=== PATIENT | male | born 1995 ===

== ENCOUNTER 2020-04-27 11:40 | Emergency (ER) | payer OTHER, SELFPAY ==
[2020-04-27] VITALS (12 sets, daily range): BP systolic 123–150; BP diastolic 75–92; PULSE 87–127; RESP 14–27; TEMP 37.4; O2SAT 94–97; BMI 33.5
--- NOTE | 2020-04-27 12:46 | ED_ITS ---
HPI - GI Bleed General Chief complaint: GI Bleed Stated complaint: chrons flair up/ intestinal pain Time Seen by Provider: 04/27/20 12:24 Source: patient Mode of arrival: Wheelchair Limitations: no limitations History of Present Illness HPI Narrative: Patient is a 24-year-old male with history of Crohn's disease who is controlled on an infusion of Entyvio once every other month, but has not had an injection since October. He started having increasing abdominal pain about a week ago on 04/22/20 was seen evaluated at [facility] he had blood work and a CT scan was started on prednisone unfortunately he did not take the prednisone because he throws up every time he eats or drinks anything. He started having bloody stool yesterday. He said it was bright red multiple episodes then started becoming maroon. He is having some abdominal cramping. He is little short of breath with exertion noted to be slightly tachycardic in the ED. he denies any hematemesis. He is also complaining of rigors and sweats. MD complaint: gross hematochezia Related Data Previous Rx's Medication Instructions Recorded ondansetron 4 mg PO Q8H PRN #10 tab 04/27/20 Allergies Allergy/AdvReac Type Severity Reaction Status Date / Time No Known Drug Allergies Allergy Verified 04/27/20 12:18 Review of Systems Review of Systems Narrative: GENERAL: Denies chills, fatigue, malaise, fever, sweats, travel HEENT: Denies sinus pain, ear pain, sore throat, difficulty swallowing, neck pain RESPIRATORY: Short of breath with exertion Denies dyspnea, cough, wheezing, hemoptysis, sputum. CARDIOVASCULAR: Denies chest pain, palpitations, orthopnea, edema GASTROINTESTINAL see HPI : Denies dysuria, frequency, incontinence, hematuria, urinary retention, flank pain. MUSCULOSKELETAL: Denies weakness, joint pain, or bony pain SKIN: No rash, no erythema, no pruritus NEUROLOGIC: Denies weakness, dizziness, headache, numbness, change in speech, confusion PSYCHIATRIC: No concerning psychosocial issues. 12 point review of systems is negative except for those stated above and HPI Patient History Medical History Crohn's disease Social History Smoking Status: Unknown if ever smoked Smoking Status: Unknown if ever smoked alcohol intake frequency: holidays/special occasions only Substance Use Type: does not use Exam Initial Vital Signs Initial Vital Signs: Vital Signs Temperature 99.3 F 04/27/20 12:13 Pulse Rate 127 H 04/27/20 12:13 Respiratory Rate 15 04/27/20 12:13 Blood Pressure 140/92 H 04/27/20 12:13 Pulse Oximetry 96 04/27/20 12:13 GENERAL: Well-appearing, well-nourished and in no acute distress. HEENT: Head atraumatic,EOMI, pupils reactive, face symmetric, moist mucous membranes CARDIOVASCULAR: Regular rate and rhythm without murmurs, rubs or gallops. RESPIRATORY: Breath sounds equal bilaterally, no wheezes rales or rhonchi. ABDOMEN: Soft, nontender. Normoactive bowel sounds all 4 quadrants. No guarding or rebound. RECTAL: Hemoccult negative, no hemorrhoids EXTREMITIES: Normal range of motion, no clubbing or edema. Neurovascularly intact NEUROLOGICAL: Alert and oriented x4.Normal gait and speech. Cranial nerves II through XII grossly intact. SKIN: Warm, dry, no laceration, no petechiae, no rashes or lesions. Course Orders Ordered: ED Orders 04/27/20 12:21 EKG-12 Lead Stat 04/27/20 12:49 Complete Blood Count AUTO DIFF Stat Comprehensive Metabolic Panel Stat Partial Thromboplastin Time Stat Prothrombin Time INR Stat Type and Screen Stat 04/27/20 13:26 Urine Culture Stat Urine Microscopic Stat Discontinued Medications Sodium Chloride (Normal Saline 0.9%) 1,000 mls @ 1,000 mls/hr IV BOLUS ONE Stop: 04/27/20 16:05 Last Infusion: 04/27/20 16:37 Dose: 0 mls/hr Documented by: Admin: 04/27/20 15:48 Dose: 1,000 mls/hr Documented by: JEREMY Methylprednisolone (Methylprednisolone 125 Mg/2 Ml Vial) 125 mg IV NOW ONE Stop: 04/27/20 13:00 Last Admin: 04/27/20 13:05 Dose: 125 mg Documented by: SUMAYA Morphine Sulfate (Morphine 2 Mg/Ml Inj) 2 mg IV NOW ONE Stop: 04/27/20 14:15 Last Admin: 04/27/20 14:47 Dose: 2 mg Documented by: MEAGHAN Ondansetron HCl (Ondansetron 4 Mg/2 Ml Inj) 4 mg IV NOW ONE Stop: 04/27/20 13:00 Last Admin: 04/27/20 13:05 Dose: 4 mg Documented by: SUMAYA Potassium Chloride (Potassium Chloride 20 Meq Tab) 40 meq PO NOW ONE Stop: 04/27/20 15:08 Last Admin: 04/27/20 15:47 Dose: 40 meq Documented by: JEREMY Vital Signs Vital signs: Vital Signs - 8 hr 04/27/20 12:13 04/27/20 12:16 04/27/20 12:17 Temperature 99.3 F Pulse Rate 127 H 121 H Respiratory Rate 15 Blood Pressure 140/92 H 140/92 H Pulse Oximetry 96 97 96 04/27/20 12:30 04/27/20 13:00 04/27/20 13:30 Temperature Pulse Rate 104 H 104 H 100 H Respiratory Rate 27 H 24 25 H Blood Pressure Pulse Oximetry 95 95 94 04/27/20 14:51 04/27/20 15:00 04/27/20 15:30 Temperature Pulse Rate 97 H 88 88 Respiratory Rate 15 14 20 Blood Pressure 143/87 H 148/85 H 150/87 H Pulse Oximetry 94 94 95 04/27/20 15:52 04/27/20 16:00 04/27/20 16:30 Temperature Pulse Rate 87 90 89 Respiratory Rate 19 21 23 Blood Pressure 144/78 H 135/79 123/75 Pulse Oximetry 96 94 94 MDM - GI Bleed Lab Data Attestation: I reviewed the patient's lab results. Result diagrams: 04/27/20 12:49 04/27/20 12:49 Labs: Lab Results 04/27/20 04/27/20 04/27/20 Range/Units 12:49 12:49 12:49 WBC 17.5 H (4.5-11.0) X10^3/uL RBC 5.15 (4.5-5.9) X10^6/uL Hgb 14.5 (13.5-17.5) g/dL Hct 42.9 (41-53) % MCV 83.2 (80-100) fL MCH 28.1 (26-34) PG MCHC 33.7 (30-36) % RDW 13.2 (11.6-14.8) % Plt Count 288 (150-400) X10^3/uL Neut % (Auto) Not Reportable Lymph % (Auto) Not Reportable [place] % (Auto) Not Reportable Eos % (Auto) Not Reportable Baso % (Auto) Not Reportable Lymph # (Auto) Not Reportable [place] # (Auto) Not Reportable Baso # (Auto) Not Reportable Total Counted 100 Seg Neutrophils % 42.0 (38-70) % Band Neutrophils % 36.0 H (3-7) % Lymphocytes % (Manual) 4.0 L (25-45) % Atypical Lymphs % 1.0 H ( - 0) % Monocytes % (Manual) 17.0 H (2-11) % Neutrophils # (Manual) 23540 H (7471-4898) /uL Toxic Vacuolation Present H Dohle Bodies 1+ H RBC Morphology Normal morphology PT 19.3 H (10.1-12.7) SECONDS INR 1.7 H (0.9-1.3) APTT 29 (26.4-36.2) SECONDS Sodium 132 L (137-145) mmol/L Potassium 3.0 L (3.4-5.1) mmol/L Chloride 98 (98-107) mmol/L Carbon Dioxide 22 (22-32) mmol/L BUN 10 (9-20) mg/dL Creatinine 0.85 (0.66-1.25) mg/dL Estimated GFR > 60.0 (>60) mL/min BUN/Creatinine Ratio 11.8 (6-22) Glucose 127 H (70-100) mg/dL Calcium 8.8 (8.4-10.2) mg/dL Total Bilirubin 0.5 (0.2-1.3) mg/dL AST 36 (17-59) IU/L ALT 34 (<50) IU/L Alkaline Phosphatase 129 H (38-126) U/L Total Protein 7.5 (6.3-8.2) g/dL Albumin 3.9 (3.5-5.0) g/dL Globulin 3.6 (1.7-4.1) g/dL Albumin/Globulin Ratio 1.1 (1.0-2.8) Urine RBC (0-5/HPF) Urine WBC (0-5/HPF) Ur Squamous Epith Cells (0-5/HPF) Amorphous Sediment Urine Bacteria (None) Urine Mucus (Negative) Ur Culture Indicated? Blood Type Antibody Screen 04/27/20 04/27/20 Range/Units 12:49 13:26 WBC (4.5-11.0) X10^3/uL RBC (4.5-5.9) X10^6/uL Hgb (13.5-17.5) g/dL Hct (41-53) % MCV (80-100) fL MCH (26-34) PG MCHC (30-36) % RDW (11.6-14.8) % Plt Count (150-400) X10^3/uL Neut % (Auto) Lymph % (Auto) [place] % (Auto) Eos % (Auto) Baso % (Auto) Lymph # (Auto) [place] # (Auto) Baso # (Auto) Total Counted Seg Neutrophils % (38-70) % Band Neutrophils % (3-7) % Lymphocytes % (Manual) (25-45) % Atypical Lymphs % ( - 0) % Monocytes % (Manual) (2-11) % Neutrophils # (Manual) ([id number]) /uL Toxic Vacuolation Dohle Bodies RBC Morphology PT (10.1-12.7) SECONDS INR (0.9-1.3) APTT (26.4-36.2) SECONDS Sodium (137-145) mmol/L Potassium (3.4-5.1) mmol/L Chloride (98-107) mmol/L Carbon Dioxide (22-32) mmol/L BUN (9-20) mg/dL Creatinine (0.66-1.25) mg/dL Estimated GFR (>60) mL/min BUN/Creatinine Ratio (6-22) Glucose (70-100) mg/dL Calcium (8.4-10.2) mg/dL Total Bilirubin (0.2-1.3) mg/dL AST (17-59) IU/L ALT (<50) IU/L Alkaline Phosphatase (38-126) U/L Total Protein (6.3-8.2) g/dL Albumin (3.5-5.0) g/dL Globulin (1.7-4.1) g/dL Albumin/Globulin Ratio (1.0-2.8) Urine RBC 1-5/hpf (0-5/HPF) Urine WBC 5-10/hpf H (0-5/HPF) Ur Squamous Epith Cells 1-5 /hpf (0-5/HPF) Amorphous Sediment 1+ Urine Bacteria Few (2-10) H (None) Urine Mucus 2+ H (Negative) Ur Culture Indicated? Specimen cultured Blood Type O Positive Antibody Screen Negative Urine Dip Bedside Urine Glucose Negative Bedside Urine Bilirubin + 1 Bedside Urine Ketone +++ 80 Urine Specific [place] 1.025 Bedside Urine Occult Blood ++ Bedside Urine pH 6 Bedside Urine Protein ++ 100 Bedside Urine Urobilinogen - Negative Bedside Urine Nitrite - Negative Bedside Urine Leukocytes - Negative Esterase MDM Narrative Medical decision making narrative: Patient had CT abdomen and pelvis 1 week ago for Crohn's disease he was given a long taper of steroids 40 mg for a week 30 mg for week 20 mg for a week and 10 mg for a week which he has not yet started. He is not anemic he is noted to have some hypokalemia. Records received and reviewed from [facility] blood work is similar WBC is slightly elevated 17.5 previously 15.5. Hemoglobin hematocrit are stable. At this time I recommend starting his prednisone taper as previously prescribed. He is given Zofran to help with the nausea. His potassium is replaced and he is given IV fluids along with a dose of IV Solu-Medrol. He is overall hemodynamically stable without tachycardia or hypotension, at this time certainly no significant blood loss or infection noted. I discussed all findings with the patient , Education has been performed regarding treatment plan, diagnosis, warning signs and symptoms and all concerns have been addressed. Verbally agree with and understood all of the above. Discharge Plan Departure Patient Disposition: Home Clinical Impression: Crohn's disease Instructions: DI for Crohns Disease Flare Activity Restrictions/Additional Instructions: *You have been diagnosed with Crohn's disease exacerbation *What to do: At this time her blood work is overall reassuring. It is imperative that you take the prednisone as previously prescribed. Increase fluid intake as tolerated. You need to start your infusions again. Please contact your provider in regards to this. *Continue to take medications as directed Zofran 4 mg every 8 hours if needed for nausea or vomiting. This will help keep your prednisone down. *Follow up with your primary care provider in 2-3 days *Return to ER if you should have increasing dizziness, lightheadedness, increasing pain, fever or any new, worsening or concerning symptoms Prescriptions: New ondansetron 4 mg tablet,disintegrating 4 mg PO Q8H PRN (Reason: nausea and vomiting) Qty: 10 RF: 0
[2020-04-27] MEDS: ONDANSETRON 4 MG/2 ML INJ IV (13:05)
[2020-04-27] MEDS: methylPREDNISolone 125 MG/2 ML VIAL IV (13:05)
[2020-04-27 13:10] LABS: Hematocrit 42.9 % (41-53); Hemoglobin 14.5 g/dL (13.5-17.5); Mean Corpuscular HGB Conc 33.7 % (30-36); Mean Corpuscular Hemoglobin 28.1 PG (26-34); Mean Corpuscular Volume 83.2 fL (80-100); Platelet Count 288 X10^3/uL (150-400); Red Blood Cell Count 5.15 X10^6/uL (4.5-5.9); Red Cell Distribution Width 13.2 % (11.6-14.8); White Blood Cell Count 17.5 X10^3/uL (4.5-11.0)
[2020-04-27 13:13] LABS: INR 1.7 (0.9-1.3); Prothrombin Time 19.3 SECONDS (10.1-12.7)
[2020-04-27 13:14] LABS: Add Manual Diff / Slide Review YES
[2020-04-27 13:15] LABS: PTT Partial Thromboplastin Tim 29 SECONDS (26.4-36.2)
[2020-04-27 13:18] LABS: Alanine Aminotransferase 34 IU/L (<50); Albumin 3.9 g/dL (3.5-5.0); Albumin Globulin Ratio 1.1 (1.0-2.8); Alkaline Phosphatase 129 U/L (38-126); Aspartate Aminotransferase 36 IU/L (17-59); BUN Creatinine Ratio 11.8 (6-22); Bilirubin Total 0.5 mg/dL (0.2-1.3); Blood Urea Nitrogen 10 mg/dL (9-20); Calcium 8.8 mg/dL (8.4-10.2); Carbon Dioxide 22 mmol/L (22-32); Chloride 98 mmol/L (98-107); Estimated Glomerular Filt Rate > 60.0 mL/min (>60); Globulin 3.6 g/dL (1.7-4.1); Glucose 127 mg/dL (70-100); HEMOLYSIS < 15 (0-50); Sodium 132 mmol/L (137-145); Total Protein 7.5 g/dL (6.3-8.2)
[2020-04-27 13:51] LABS: Amorphous Sediment Urine 1+; Bacteria Urine Few (2-10); Culture Indicated Urine Specimen Cultured; Mucus Urine 2+ (Negative); RBC Urine 1-5/HPF (0-5/HPF); Squamous Epithelial Cell Urine 1-5 /HPF (0-5/HPF); WBC Urine 5-10/HPF (0-5/HPF)
[2020-04-27 13:58] LABS: Dohle Bodies 1+; Neutrophils Absolute Manual 13650 /uL (3000-5900); RBC Morphology Normal Morphology; Total Cells Counted 100; Toxic Vacuolation Present
[2020-04-27] MEDS: MORPHINE 2 MG/ML INJ IV (14:47)
[2020-04-27] MEDS: POTASSIUM CHLORIDE 20 MEQ TAB 40 MEQ PO (15:47)
[2020-04-27] MEDS: SODIUM CHLORIDE 0.9% 1,000 ML 1000 ML IV (15:48)
== END 2020-04-27 16:37 | disposition home or self-care (01) ==
PROVIDERS: Emergency Provider Emergency Medicine
DX: K50.90 Crohn's disease, unspecified, without complications (principal); R06.02 Shortness of breath; R00.0 Tachycardia, unspecified; R11.0 Nausea; D72.829 Elevated white blood cell count, unspecified
CPT/HCPCS: 36415; 80053; 81003; 81015; 85007; 85025; 85610; 85730; 86850; 86900; 86901; 87086; 93005; 96361; 96374; 96375; 99281; 99284; J2270; J2405; J2930